=== PATIENT | male | born 2000 | race Caucasian/White ===

== ENCOUNTER 2020-01-08 16:14 | Outpatient (CLI) | payer OTHER, SELFPAY ==
--- NOTE | ~2020-01-08 | XR_ITS ---
EXAMINATION: XR hand RT min 3V DATE: 01/08/2020 16:41 INDICATION: Right hand injury 3 weeks prior with pain at the right fifth digit. TECHNIQUE: Posteroanterior, oblique and lateral views of the right hand were obtained. COMPARISON: None. FINDINGS: Bone alignment is normal. No acute fracture. Joint spaces are normal. Soft tissues are unremarkable. IMPRESSION: 1. No acute osseous abnormality. Reviewed, dictated and finalized at location B.
== END 2020-01-08 16:15 | disposition home or self-care (01) ==
PROVIDERS: PCP Pediatrics; Visit Provider Pediatrics
DX: S69.91XA Unspecified injury of right wrist, hand and finger(s), initial encounter (principal); X58.XXXA Exposure to other specified factors, initial encounter
CPT/HCPCS: 73130

== ENCOUNTER 2020-04-06 08:05 | Outpatient (NON) | payer OTHER, SELFPAY ==
[2020-04-06 22:22] LABS: SARS-CoV-2 RNA PCR Negative
== END 2020-04-06 08:06 ==
LOC: ANHCOVIDDT 08:06
PROVIDERS: PCP Pediatrics; Visit Provider Pediatrics
DX: R68.89 Other general symptoms and signs (principal); Z20.822 Contact with and (suspected) exposure to COVID-19
CPT/HCPCS: C9803; U0003

== ENCOUNTER 2020-06-04 15:33 | Outpatient (CLI) | payer OTHER, SELFPAY | END 2020-06-04 15:34 | disposition home or self-care (01) | LOC: ANHCOVIDVC 15:33 | PROVIDERS: PCP Pediatrics | DX: Z23 Encounter for immunization (principal) | CPT/HCPCS: 0001A; 91300 ==

== ENCOUNTER 2020-06-25 15:33 | Outpatient (CLI) | payer OTHER, SELFPAY | END 2020-06-25 15:34 | disposition home or self-care (01) | LOC: ANHCOVIDVC 15:33 | PROVIDERS: PCP Pediatrics | DX: Z23 Encounter for immunization (principal) | CPT/HCPCS: 0002A; 91300 ==